=== PATIENT | male | born 1940 | race Caucasian/White ===

== ENCOUNTER 2022-02-09 16:17 | Emergency (ER) | payer OTHER ==
[~2022-02-09] VITALS: Ht 177.8 cm; Wt 68.2 kg
[2022-02-09 16:51] LABS: BASOPHILS % (AUTO) 0.6 % (0.0-2.0); EOSINOPHILS % (AUTO) 1.3 % (1.0-6.0); HEMATOCRIT 39.4 % (41-53); HEMOGLOBIN 13.3 g/dL (13.5-17.5); LYMPHOCYTES # (AUTO) 0.5 K/uL (1.0-4.8); LYMPHOCYTES % (AUTO) 5.3 % (22.0-44.0); MEAN CORPUSCULAR HEMOGLOBIN 33.5 pg (26.0-34.0); MEAN CORPUSCULAR HGB CONC 33.8 G/dL (31.0-37.0); MEAN CORPUSCULAR VOLUME 99 fL (80-100); MONOCYTES # (AUTO) 0.9 K/uL (0.1-1.0); MONOCYTES % (AUTO) 9.1 % (2.0-9.0); NEUTROPHILS # (AUTO) 8.3 K/uL (1.8-7.7); NEUTROPHILS % (AUTO) 83.7 % (40.0-70.0); PLATELET COUNT (AUTO) 148 K/uL (150-450); RED BLOOD CELL COUNT(AUTO) 3.97 MIL/uL (4.50-5.90)
[2022-02-09 17:00] LABS: CALCIUM, TOTAL 8.8 mg/dL (8.8-10.5); CREATININE 1.44 mg/dL (0.60-1.30); POTASSIUM 4.5 mmol/L (3.5-5.1)
[2022-02-09 17:02] LABS: PROTHROMBIN TIME 10.8 SEC (9.4-11.6)
[2022-02-09 17:11] LABS: ALBUMIN 2.7 g/dL (3.4-5.0); BILIRUBIN,TOTAL 1.1 mg/dL (0.1-1.0); TOTAL PROTEIN, SERUM 6.5 g/dL (6.4-8.2)
[2022-02-09] MEDS ORDERED: SODIUM CHLORIDE 0.9% 100 ML ONE (17:49)
[2022-02-09] MEDS ORDERED: IOHEXOL 350 MG/ML 100 ML VIAL ONE (17:49)
[2022-02-09] MEDS ORDERED: ACETAMINOPHEN 500 MG TABLET PO ONE (19:45)
[2022-02-09] MEDS ORDERED: PIPERACILLIN/TAZO 3.375 GM/D5W 50 ML IV ONE (20:30)
[2022-02-09] MEDS ORDERED: VANCOMYCIN HCL 1.25 GM in DEXTROSE 5%-WATER 250 ML IV ONE (20:30)
[2022-02-09] MEDS ORDERED: MORPHINE SULFATE 2 MG/ML SYRINGE IVP ONE (20:45)
[2022-02-09 20:48] LABS: COVID AG,FIA SOURCE NASOPHARYNGEAL
[2022-02-09 22:46] VITALS: BP 114/50
== END 2022-02-09 22:30 | disposition short-term general hospital (02) ==
LOC: EMS 16:17
DX: L02.31 Cutaneous abscess of buttock (principal); I10 Essential (primary) hypertension; R00.0 Tachycardia, unspecified; Z95.1 Presence of aortocoronary bypass graft; Z96.659 Presence of unspecified artificial knee joint; Z98.890 Other specified postprocedural states; Z91.018 Allergy to other foods; Z20.822 Contact with and (suspected) exposure to COVID-19
CPT/HCPCS: 36415; 71045; 74177; 80053; 82550; 83605; 83880; 84484; 85025; 85610; 85730; 87426; 93005; 96365; 96367; 96375; 99285; J2270; J2543; J3370; J7050; J7060; Q9967